=== PATIENT | female | born 1990 | race African-American/Black ===

== ENCOUNTER → 2020-04-07 | Outpatient (CLI) | payer MEDICAID ==
--- NOTE | 2020-04-07 17:05 | RADIOLOGY REPORT (SQ) ---
EXAM DESCRIPTION: U/S OB 14+ TRNABD 1GES W/O DOP IMAGES COMPLETED DATE/TIME: 04/07/2020 4:05 pm REASON FOR STUDY: (Z34.82)ENCOUNTER FOR SUPRVSN OF NORMAL , SECOND TRIMESTER Z34.[address] FOR SUPRVSN OF NORMAL , SECOND TRI COMPARISON: None. TECHNIQUE: Static and Dynamic grayscale imaging performed of gravid uterus using transabdominal appr oach. Additional selected color Doppler and spectral images recorded. All stored on PACS. LIMITATIONS: None. FINDINGS: FETUSES SEEN:1 EGA: 17 week 4 day. Calculated using BPD,FL,HC,AC documented on images. Clinical dates 18 weeks 6 da y. KEITH: 09/11/2020. EFW: 212 grams PERCENTILE: Not applicable. Fetus less than or equal to 20 weeks gestation. LVP: 3.6 x 6.3 cm. PLACENTA: Anterior. GRADE: 0 PRESENTATION: Breech. ANATOMY: HEART RATE: 145 beats per minute. FOUR CHAMBER HEART: Visualized. THREE VESSEL CORD: Yes. CORD INSERTION: Visualized. KIDNEYS AND BLADDER: Visualized. Appear normal. STOMACH: Visualized. Appears normal. SPINE: Suboptimal visualization due to positioning. BRAIN AND LATERAL VENTRICLES: Visualized. Appear normal. OTHER: No other significant finding. MATERNAL ADNEXA: Normal appearance. CERVICAL LENGTH: 2.1 cm. Closed. OTHER: No other significant finding. IMPRESSION: LIVING INTRAUTERINE . ESTIMATED GESTATIONAL AGE 17 WEEK 4 DAY. NO VISUALIZED ANOMALIES. Trimester of : Second trimester - 13 weeks 1 day to 27 weeks 6 days. TECHNICAL DOCUMENTATION: JOB ID: [id number] 2010 [employer]- All Rights Reserved Reading location - IP/workstation name: [email or web address]
== END ==
LOC: RAD 15:08
PROVIDERS: ATTEND Midwife
DX: Z34.82 Encounter for supervision of other normal pregnancy, second trimester (principal)
CPT/HCPCS: 76805

== ENCOUNTER 2020-05-27 14:17 | Observation (INO) | payer MEDICAID ==
[2020-05-27] MEDS ORDERED: HYDRALAZINE HCL INJ/PF 20 MG/1 ML SDV IV ONE ×2 (14:48→15:24)
[2020-05-27] MEDS ORDERED: HYDRALAZINE HCL INJ/PF 20 MG/1 ML SDV ONE (14:49)
[2020-05-27 15:04] LABS: HEMATOCRIT 33.9 % (36.0-47.0); HEMOGLOBIN 11.1 g/dL (12.0-15.5); MEAN CORPUSCULAR HEMOGLOBIN 29.9 pg (27.0-33.4); MEAN CORPUSCULAR HGB CONC 32.8 g/dL (32.0-36.0); MEAN CORPUSCULAR VOLUME 91 fl (80-97); PLATELET COUNT 225 10^3/uL (150-450); RED BLOOD COUNT 3.71 10^6/uL (3.72-5.28); RED CELL DISTRIBUTION WIDTH 15.1 % (11.5-14.0); WHITE BLOOD COUNT 7.4 10^3/uL (4.0-10.5)
[2020-05-27 15:33] LABS: ALBUMIN 3.1 g/dL (3.5-5.0); ALKALINE PHOSPHATASE 125 U/L (38-126); ASPARTATE AMINO TRANSFERASE 24 U/L (14-36); BILIRUBIN,TOTAL 0.2 mg/dL (0.2-1.3); BLOOD UREA NITROGEN 9 mg/dL (7-20); CALCIUM 9.3 mg/dL (8.4-10.2); CARBON DIOXIDE 25 mmol/L (22-30); CHLORIDE 105 mmol/L (98-107); GLUCOSE 70 mg/dL (75-110); TOTAL PROTEIN 6.1 g/dL (6.3-8.2); URIC ACID 4.6 mg/dL (2.5-6.2)
[2020-05-27 15:34] LABS: ANION GAP 4 (5-19)
[2020-05-27 15:39] LABS: APPEARANCE,URINE CLEAR; BILIRUBIN,URINE NEGATIVE (NEGATIVE); COLOR,URINE STRAW; GLUCOSE, URINE NEGATIVE (NEGATIVE); KETONES,URINE NEGATIVE (NEGATIVE); LEUKOCYTE ESTERASE,URINE NEGATIVE (NEGATIVE); NITRITE,URINE NEGATIVE (NEGATIVE); PROTEIN,URINE NEGATIVE (NEGATIVE); URINE SPECIFIC GRAVITY 1.005; UROBILINOGEN,URINE NEGATIVE mg/dL (<2.0)
[2020-05-27] MEDS ORDERED: NIFEDIPINE 30 MG TAB.ER.24 PO ONE (15:43)
[2020-05-27] MEDS: NIFEDIPINE 30 MG TAB.ER.24 PO SCH (15:46)
[2020-05-27 15:57] LABS: URINE AMPHETAMINES SCREEN NEGATIVE; URINE BARBITURATES SCREEN NEGATIVE; URINE BENZODIAZEPINES SCREEN NEGATIVE; URINE COCAINE SCREEN NEGATIVE; URINE MARIJUANA (THC) SCREEN NEGATIVE; URINE METHADONE SCREEN NEGATIVE; URINE PHENCYCLIDINE SCREEN NEGATIVE
[2020-05-27 16:02] LABS: UR PRO/CREAT RATIO RESULT 0.5 mg/mg (0.0-0.2); URINE CREATININE 51.8 mg/dL (16-327); URINE PROTEIN 24.9 mg/dL (<12)
[2020-05-27] MEDS ORDERED: NIFEDIPINE 10 MG CAPSULE PO ONE (16:23)
[2020-05-27] MEDS ORDERED: LABETALOL HCL 200 MG TABLET ONE (16:23)
[2020-05-27] MEDS ORDERED: NIFEDIPINE 10 MG CAPSULE ONE (16:23)
[2020-05-27] MEDS: LABETALOL HCL 200 MG TABLET PO SCH (16:27)
[2020-05-27] MEDS ORDERED: BETAMET ACET/BETAMET NA INJ 6 MG/1 ML IM ONE (16:44)
[2020-05-27] MEDS ORDERED: BETAMET ACET/BETAMET NA INJ 6 MG/1 ML ONE (16:44)
[2020-05-28] MEDS ORDERED: LABETALOL HCL 200 MG TABLET ONE (04:52)
[2020-05-28] MEDS: LABETALOL HCL 200 MG TABLET PO SCH ×2 (05:01→17:00)
[2020-05-28] MEDS ORDERED: NIFEDIPINE 30 MG TAB.ER.24 PO ONE (10:33)
[2020-05-28] MEDS: NIFEDIPINE 30 MG TAB.ER.24 PO SCH (10:36)
[2020-05-28 16:12] LABS: URINE PROTEIN 18.1 mg/dL (<12)
[2020-05-28 16:13] LABS: 24 HOUR URINE PROTEIN RESULT 606 mg/day (42-225)
--- NOTE | 2020-05-28 17:23 | PDOC DISCHARGE SUMMARY ---
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 She indicates she does not have CHTN and that at her appt yesterday was when her blood pressures presented as elevated. She was admitted also for BP control which has been optimized with Procardia XL 30 mg and Labetolol 100 mg BID. She does have a history of pre- eclampsia in her previous that occured at term. She has been carefully counseled on signs and symptoms of worsening pre-eclampsia. She will keep a bp log at home twice a day. And she will have close follow up as outpatient. She discussed her multiple anomalies associated with this and the plan to deliver at [place]. I advised her that we will try to manage her outpatient but that there is a high likelihood that she could be readmitted for filler leaf cutter long management if condition starts to worsen. She voices understanding of her condition and the associated risks. - Additional Information Resuscitation Status: Full Code Discharge Diet: Cardiac Discharge Activity: Balance Activity w/Rest, No Lifting Over 10 Pounds, No Lifting/Push/Pulling Referrals: AARON ROJAS CNM [Primary Care Provider] - Prescriptions: Labetalol HCl [Normodyne 200 mg Tablet] 100 mg PO Q12A #60 tablet Nifedipine [Procardia XL 30 mg Tablet] 30 mg PO DAILY #30 tab.er.24 Home Medications: Prenat 115/Iron Fum/Folic/Dss [ 19 Tablet] 1 tab PO DAILY 05/27/20 Labetalol HCl [Normodyne 200 mg Tablet] 100 mg PO Q12A #60 tablet 05/28/20 Nifedipine [Procardia XL 30 mg Tablet] 30 mg PO DAILY #30 tab.er.24 05/28/20 History of Present Illiness History of Present Illness: MARK KEENAN is a 29 year old female Physical Exam - Physical Exam Vital Signs: Intake & Output 05/27/20 05/28/20 05/29/20 06:59 06:59 06:59 Weight 73.1 kg Results Laboratory Results: WBC 7.4 10^3/uL (4.0-10.5) 05/27/20 14:40 RBC 3.71 10^6/uL (3.72-5.28) L 05/27/20 14:40 Hgb 11.1 g/dL (12.0-15.5) L 05/27/20 14:40 Hct 33.9 % (36.0-47.0) L 05/27/20 14:40 MCV 91 fl (80-97) 05/27/20 14:40 MCH 29.9 pg (27.0-33.4) 05/27/20 14:40 MCHC 32.8 g/dL (32.0-36.0) 05/27/20 14:40 RDW 15.1 % (11.5-14.0) H 05/27/20 14:40 Plt Count 225 10^3/uL (150-450) 05/27/20 14:40 Sodium 134.1 mmol/L (137-145) L 05/27/20 14:40 Potassium 4.0 mmol/L (3.6-5.0) 05/27/20 14:40 Chloride 105 mmol/L (98-107) 05/27/20 14:40 Carbon Dioxide 25 mmol/L (22-30) 05/27/20 14:40 Anion Gap 4 (5-19) L 05/27/20 14:40 BUN 9 mg/dL (7-20) 05/27/20 14:40 Creatinine 0.60 mg/dL (0.52-1.25) 05/27/20 14:40 Est GFR ( Amer) > 60 (>60) 05/27/20 14:40 Est GFR (MDRD) Non-Af > 60 (>60) 05/27/20 14:40 Glucose 70 mg/dL (75-110) L 05/27/20 14:40 Uric Acid 4.6 mg/dL (2.5-6.2) 05/27/20 14:40 Calcium 9.3 mg/dL (8.4-10.2) 05/27/20 14:40 Total Bilirubin 0.2 mg/dL (0.2-1.3) 05/27/20 14:40 Direct Bilirubin 0.0 mg/dL (0.0-0.4) 05/27/20 14:40 Neonat Total Bilirubin Not Reportable 05/27/20 14:40 Neonat Direct Bilirubin Not Reportable 05/27/20 14:40 Neonat Indirect Bili Not Reportable 05/27/20 14:40 AST 24 U/L (14-36) 05/27/20 14:40 ALT 18 U/L (<35) 05/27/20 14:40 Alkaline Phosphatase 125 U/L (38-126) 05/27/20 14:40 Lactate Dehydrogenase 213 U/L (120-246) 05/27/20 14:40 Total Protein 6.1 g/dL (6.3-8.2) L 05/27/20 14:40 Albumin 3.1 g/dL (3.5-5.0) L 05/27/20 14:40 Urine Color STRAW 05/27/20 15:07 Urine Appearance CLEAR 05/27/20 15:07 Urine pH 7.0 (5.0-9.0) 05/27/20 15:07 Ur Specific [place] 1.005 05/27/20 15:07 Urine Protein NEGATIVE mg/dL (NEGATIVE) 05/27/20 15:07 Urine Glucose (UA) NEGATIVE mg/dL (NEGATIVE) 05/27/20 15:07 Urine Ketones NEGATIVE mg/dL (NEGATIVE) 05/27/20 15:07 Urine Blood NEGATIVE (NEGATIVE) 05/27/20 15:07 Urine Nitrite NEGATIVE (NEGATIVE) 05/27/20 15:07 Urine Bilirubin NEGATIVE (NEGATIVE) 05/27/20 15:07 Urine Urobilinogen NEGATIVE mg/dL (<2.0) 05/27/20 15:07 Ur Leukocyte Esterase NEGATIVE (NEGATIVE) 05/27/20 15:07 Urine WBC (Auto) 1 /HPF 05/27/20 15:07 Urine RBC (Auto) 0 /HPF 05/27/20 15:07 Squamous Epi Cells Auto 3 /HPF 05/27/20 15:07 Ur 24 Hour Volume 3350 mL 05/27/20 15:07 Urine Creatinine 51.8 mg/dL (16-327) 05/27/20 15:07 Ur Total Protein 24 Hr 606 mg/day (42-225) H 05/27/20 15:07 Protein/Creatinin Ratio 0.5 mg/mg (0.0-0.2) H 05/27/20 15:07 Urine Total Protein 18.1 mg/dL (<12) H 05/27/20 15:07 Urine Total Protein 24.9 mg/dL (<12) H 05/27/20 15:07 Urine Ascorbic Acid NEGATIVE (NEGATIVE) 05/27/20 15:07 Urine Opiates Screen NEGATIVE 05/27/20 15:07 Urine Methadone Screen NEGATIVE 05/27/20 15:07 Ur Barbiturates Screen NEGATIVE 05/27/20 15:07 Ur Phencyclidine Scrn NEGATIVE 05/27/20 15:07 Ur Amphetamines Screen NEGATIVE 05/27/20 15:07 U Benzodiazepines Scrn NEGATIVE 05/27/20 15:07 Urine Cocaine Screen NEGATIVE 05/27/20 15:07 U Marijuana (THC) Screen NEGATIVE 05/27/20 15:07 Stroke Is this a Stroke Patient?: No Acute Heart Failure Is this a Heart Failure Patient?: No
[2020-05-28] MEDS ORDERED: BETAMET ACET/BETAMET NA INJ 6 MG/1 ML ONE (18:52)
[2020-05-28] MEDS ORDERED: BETAMET ACET/BETAMET NA INJ 6 MG/1 ML IM ONE (18:53)
== END 2020-05-28 18:58 | disposition home or self-care (01) ==
LOC: LC 14:17 → LR 17:43
PROVIDERS: ADMIT Obstetrics & Gynecology Gynecology; ATTEND Obstetrics & Gynecology Gynecology
DX: O36.5921 Maternal care for other known or suspected poor fetal growth, second trimester, fetus 1 (principal); O35.8XX1 Maternal care for other (suspected) fetal abnormality and damage, fetus 1; O14.92 Unspecified pre-eclampsia, second trimester; O98.512 Other viral diseases complicating pregnancy, second trimester; O98.212 Gonorrhea complicating pregnancy, second trimester; O98.812 Other maternal infectious and parasitic diseases complicating pregnancy, second trimester; Z3A.26 26 weeks gestation of pregnancy
CPT/HCPCS: 36415; 83615; 84156; 84550; 82570; 85027; 80053; 81001; 80307; G0378 ×2; J0360; J3490 ×5; J0702 ×2

== ENCOUNTER 2020-05-30 12:12 | Outpatient (CLI) | payer MEDICAID ==
[2020-05-30] MEDS ORDERED: HYDRALAZINE HCL INJ/PF 20 MG/1 ML SDV IV ONE (12:45)
[2020-05-30] MEDS ORDERED: RINGERS SOLUTION,LACTATED 1,000 ML IV PRN (12:45)
[2020-05-30] MEDS ORDERED: HYDRALAZINE HCL INJ/PF 20 MG/1 ML SDV ONE (12:47)
[2020-05-30 14:18] LABS: HEMATOCRIT 30.3 % (36.0-47.0); HEMOGLOBIN 10.1 g/dL (12.0-15.5); MEAN CORPUSCULAR HEMOGLOBIN 30.5 pg (27.0-33.4); MEAN CORPUSCULAR HGB CONC 33.3 g/dL (32.0-36.0); MEAN CORPUSCULAR VOLUME 92 fl (80-97); PLATELET COUNT 262 10^3/uL (150-450); RED BLOOD COUNT 3.31 10^6/uL (3.72-5.28); RED CELL DISTRIBUTION WIDTH 15.2 % (11.5-14.0); WHITE BLOOD COUNT 12.3 10^3/uL (4.0-10.5)
[2020-05-30 14:29] LABS: ALKALINE PHOSPHATASE 120 U/L (38-126); ASPARTATE AMINO TRANSFERASE 24 U/L (14-36); BILIRUBIN,TOTAL 0.1 mg/dL (0.2-1.3); BLOOD UREA NITROGEN 12 mg/dL (7-20); CALCIUM 9.1 mg/dL (8.4-10.2); CHLORIDE 105 mmol/L (98-107); GLUCOSE 99 mg/dL (75-110); POTASSIUM 3.7 mmol/L (3.6-5.0); TOTAL PROTEIN 5.7 g/dL (6.3-8.2); URIC ACID 4.3 mg/dL (2.5-6.2)
[2020-05-30 14:34] LABS: CARBON DIOXIDE 27 mmol/L (22-30)
[2020-05-30 14:39] LABS: ANION GAP 3 (5-19)
== END 2020-05-30 15:23 | disposition home or self-care (01) ==
LOC: LC 12:12
PROVIDERS: ATTEND Obstetrics & Gynecology
DX: O14.93 Unspecified pre-eclampsia, third trimester (principal); Z3A.28 28 weeks gestation of pregnancy
CPT/HCPCS: 36415; 83615; 84550; 85027; 80053; 59899; J0360; 94760

== ENCOUNTER 2020-06-01 02:59 | Outpatient (CLI) | payer MEDICAID ==
[2020-06-01 03:34] LABS: APPEARANCE,URINE CLEAR; BILIRUBIN,URINE NEGATIVE (NEGATIVE); COLOR,URINE STRAW; GLUCOSE, URINE NEGATIVE (NEGATIVE); KETONES,URINE NEGATIVE (NEGATIVE); LEUKOCYTE ESTERASE,URINE SMALL (NEGATIVE); NITRITE,URINE NEGATIVE (NEGATIVE); PROTEIN,URINE >=500 mg/dL (NEGATIVE); UROBILINOGEN,URINE NEGATIVE mg/dL (<2.0)
[2020-06-01 03:57] LABS: URINE AMPHETAMINES SCREEN NEGATIVE; URINE BARBITURATES SCREEN NEGATIVE; URINE BENZODIAZEPINES SCREEN NEGATIVE; URINE COCAINE SCREEN NEGATIVE; URINE MARIJUANA (THC) SCREEN NEGATIVE; URINE METHADONE SCREEN NEGATIVE; URINE PHENCYCLIDINE SCREEN NEGATIVE
== END 2020-06-01 04:13 | disposition home or self-care (01) ==
LOC: LC 02:59
PROVIDERS: ATTEND Nurse Practitioner Family
DX: O14.92 Unspecified pre-eclampsia, second trimester (principal); O98.512 Other viral diseases complicating pregnancy, second trimester; O99.332 Smoking (tobacco) complicating pregnancy, second trimester; F17.210 Nicotine dependence, cigarettes, uncomplicated; Z3A.26 26 weeks gestation of pregnancy
CPT/HCPCS: 80307; 81001

== ENCOUNTER 2020-06-01 22:31 | Outpatient (CLI) | payer MEDICAID ==
[2020-06-01 22:59] LABS: APPEARANCE,URINE SLIGHTLY-CLOUDY; BILIRUBIN,URINE NEGATIVE (NEGATIVE); COLOR,URINE YELLOW; GLUCOSE, URINE NEGATIVE (NEGATIVE); KETONES,URINE NEGATIVE (NEGATIVE); LEUKOCYTE ESTERASE,URINE TRACE (NEGATIVE); NITRITE,URINE NEGATIVE (NEGATIVE); PROTEIN,URINE >=500 mg/dL (NEGATIVE); URINE SPECIFIC GRAVITY 1.018; UROBILINOGEN,URINE NEGATIVE mg/dL (<2.0)
[2020-06-01 23:11] LABS: ABSOLUTE BASOPHILS # (AUTO) 0.1 10^3/uL (0.0-0.2); ABSOLUTE EOSINOPHILS # (AUTO) 0.5 10^3/uL (0.0-0.6); ABSOLUTE LYMPHOCYTES (AUTO) 3.2 10^3/uL (0.5-4.7); ABSOLUTE MONOCYTES (AUTO) 1.1 10^3/uL (0.1-1.4); EOSINOPHILS % (AUTO) 4.4 % (0-6); HEMATOCRIT 32.3 % (36.0-47.0); HEMOGLOBIN 10.5 g/dL (12.0-15.5); LYMPHOCYTES % (AUTO) 26.5 % (13-45); MEAN CORPUSCULAR HGB CONC 32.6 g/dL (32.0-36.0); MEAN CORPUSCULAR VOLUME 92 fl (80-97); MONOCYTES % (AUTO) 9.2 % (3-13); PLATELET COUNT 250 10^3/uL (150-450); RED BLOOD COUNT 3.52 10^6/uL (3.72-5.28); RED CELL DISTRIBUTION WIDTH 15.3 % (11.5-14.0); SEGMENTED NEUTROPHILS % (AUTO) 58.9 % (42-78); TOTAL CELLS COUNTED % (AUTO) 100 %; WHITE BLOOD COUNT 11.9 10^3/uL (4.0-10.5)
[2020-06-01 23:11] LABS: URINE AMPHETAMINES SCREEN NEGATIVE; URINE BARBITURATES SCREEN NEGATIVE; URINE BENZODIAZEPINES SCREEN NEGATIVE; URINE COCAINE SCREEN NEGATIVE; URINE MARIJUANA (THC) SCREEN NEGATIVE; URINE METHADONE SCREEN NEGATIVE; URINE PHENCYCLIDINE SCREEN NEGATIVE
[2020-06-01] MEDS ORDERED: RINGERS SOLUTION,LACTATED 1,000 ML IV PRN (23:17)
[2020-06-01 23:19] LABS: ALKALINE PHOSPHATASE 125 U/L (38-126); ASPARTATE AMINO TRANSFERASE 26 U/L (14-36); BILIRUBIN,TOTAL 0.2 mg/dL (0.2-1.3); BLOOD UREA NITROGEN 16 mg/dL (7-20); CALCIUM 8.8 mg/dL (8.4-10.2); CARBON DIOXIDE 26 mmol/L (22-30); GLUCOSE 103 mg/dL (75-110); POTASSIUM 4.2 mmol/L (3.6-5.0); TOTAL PROTEIN 5.9 g/dL (6.3-8.2); URIC ACID 5.2 mg/dL (2.5-6.2)
[2020-06-01] MEDS ORDERED: LABETALOL HCL INJ 20 MG/4 ML DISP.SYRIN IV ONE (23:22)
[2020-06-01] MEDS ORDERED: LABETALOL HCL 200 MG TABLET ONE (23:22)
[2020-06-01 23:24] LABS: CHLORIDE 106 mmol/L (98-107)
[2020-06-01 23:25] LABS: ANION GAP 3 (5-19)
[2020-06-01] MEDS ORDERED: LABETALOL HCL 200 MG TABLET PO SCH (23:30)
[2020-06-02] MEDS ORDERED: LABETALOL HCL INJ 20 MG/4 ML DISP.SYRIN IV ONE ×7 (00:18→01:30)
[2020-06-02] MEDS ORDERED: NIFEDIPINE 30 MG TAB.ER.24 PO ONE ×4 (00:18→03:00)
[2020-06-02] MEDS ORDERED: HYDRALAZINE HCL INJ/PF 20 MG/1 ML SDV ONE ×2 (01:52)
[2020-06-02] MEDS ORDERED: MAGNESIUM SULFATE 20 GM/500 ML RTUINJ IV PRN (02:17)
[2020-06-02] MEDS ORDERED: MAGNESIUM SULFATE 4 GM/100 ML RTUPB IV ONE ×2 (02:21→03:00)
[2020-06-02] MEDS ORDERED: MAGNESIUM SULFATE 20 GM/500 ML RTUINJ IV ONE (02:21)
[2020-06-02] MEDS ORDERED: HYDRALAZINE HCL INJ/PF 20 MG/1 ML SDV IV ONE (03:00)
--- NOTE | 2020-06-02 03:26 | Admission Physical ---
Datetime Report Generated by N: 06/02/2020 03:26 CURRENT ADMISSION Chief Complaint: Sent from OB Office for Evaluation and Treatment - Please Specify Chief Complaint Other: Dr. Arcelia Mcrae, [facility] saw patient earlier today and sent patient for evaluation. She was to come directly from office but is just now arriving. at 26.5 wks EGA with complicated by preeclampsia diagnosed by elevated b/p and 24 hr urine of 630. Severe preeclampsia now by blood pressures > 160 systolic. Patient was placed on antihypertensives 05/27/20 including Labetolol 100mg BID and Nifedipine 30mg BID. Patient had Headache at Dr. Delong office earlier and a 10 lb weight gain was noted since last week. Presently patient denies headache, chest pain, SOB, RUQ pain, nausea vomiting or vision changes. On US today with Dr. Mcrae, patient had EFW of 425 gms, <1% and AEDF with MCA dopplers that were elevated. 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 She did get betamethasone x2 last week on 11/25/20 Labs on admission today: Uric acid 5.2, LDH 282, /AST _ ALT 26 _ 20 , creatinine 0.73 and platelets [address] Carrera from earlier today is for transport to [place] for antepartum management and delivery if and when indicated at their facility. She had already discussed case with Dr. Helene Nguyễn who accepted her transfer. ALLERGIES Medication Allergies: No Medication Allergies: No Known Allergies (06/01/2020) Latex: No Latex Allergies OBSTETRICAL HISTORY EDC: 09/02/2020 00:00 : 2 Para: 1 Term: 1 : 0 SAB: 0 IAB: 0 Ectopic: 0 Livin Cesareans: 0 VBACs: 0 Multiple Births: 0 Gestational Diabetes: No Rh Sensitization: No Incompetent Cervix: No MERLIN: No Infertility: No ART Treatment: No Uterine Anomaly: No IUGR: Yes Hx Previous C/S: No Macrosomia: No Hx Loss/Stillborn: No PIH: Yes Hx : No Placenta Previa/Abruption: No Depression/PP Depression: No PTL/PROM: No Post Hemorrhage: No Current Procedures: Ultrasound Obstetrical History Comments: G1- 01/21/12 BB pre-e IOL at 38 weeks G2-current- pre-e, 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 [id number] Cigarette Frequency: < 5 per day Advised to Stop: Yes MEDICAL HISTORY Diabetes: No Blood Transfusion: No Pulmonary Disease (Asthma, TB): No Breast Disease: No Hypertension: Yes Hr Associate Surgery: No Heart Disease: No Hosp/Surgery: No Autoimmune Disorder: No Anesthetic Complications: No Kidney Disease: No Abnormal Pap Smear: No Neuro/Epilepsy: No Psychiatric Disorders: No Other Medical Diseases: No Hepatitis/Liver Disease: No Significant Family History: No Varicosities/Phlebitis: No Trauma/Violence : No Thyroid Dysfunction: No INFECTIOUS HISTORY Gonorrhea: Yes Genital Herpes: Yes Chlamydia: Yes Tuberculosis: No Syphilis: No Hepatitis: No HIV/AIDS Exposure: No Rash or Viral Illness: No HPV: No Infectious History Comments: Last herpes outbreak last month, GC/clamydia in the last few weeks PHYSICAL EXAM General: Normal HEENT: Normal Neurologic: Normal Thyroid: Normal Heart: Normal Lungs: Normal Breast: Normal Back: Normal Abdomen: Normal Genitourinary Exam: Normal Extremities: Normal DTRs: Normal Pelvic Type: Adequate Physical Exam Comments: Lungs clear bilaterally, heart sounds normal, no pain on palpation of abdomen including RUQ, no clonus, patellar reflexes 1/4 bilaterally Vital Signs: Reviewed; Within Normal Limits MEMBRANES Membranes: Bulging FETUS A EGA: 26.5 Monitoring: External US FHR- Baseline: 145 Variability: Minimal - Undetectable to <=5bpm Accelerations: Absent Decelerations: None FHR Category: Category II Presentation: Breech Admit Comment: Dr. Arcelia Mcrae [facility] saw patient earlier today and sent patient for evaluation. She was to come directly from office but is just now arriving. 29 yo at 26.5 wks EGA with complicated by preeclampsia diagnosed by elevated b/p and 24 hr urine of 630. Severe preeclampsia now by blood pressures > 160 systolic. Patient was placed on antihypertensives 05/27/20 including Labetolol 100mg BID and Nifedipine 30mg BID. Patient had Headache at Dr. Delong office earlier and a 10 lb weight gain was noted since last week. Presently patient denies headache, chest pain, SOB, RUQ pain, nausea vomiting or vision changes. On US today with Dr. Mcrae, patient had EFW of 425 gms, <1% and AEDF with MCA dopplers that were elevated. 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 She did get betamethasone x2 last week on 05/27/20 Labs on admission today: Uric acid 5.2, LDH 282, /AST _ ALT 26 _ 20 , creatinine 0.73 and platelets [address] Carrera from earlier today is for transport to [place] for antepartum management and delivery if and when indicated at their facility. She had already discussed case with Dr. Helene Nguyễn who accepted her transfer. -Admit to LDR -VS with severe range b/p's: Follow hypertensive protocol starting with Labetolol 20mg IV now. Resume PO labetalol as well at 200mg BID and resume nifedipine 30mg PO daily Begin Mag sulfate 4 gm bolus followed by 2 gms /hr -s/p BMZ x2 on 05/27/20 -CEFM and toco -Breech by US. EFW today was 425 gms <1% . AEDF with MCA dopplers 1.75-1.95 MoM -Labs as above. Repeat Q 12 hours -Plan for transport to [place] for further care per Dr. Mcrae's recommendations. Transport called. PLANS FOR LABOR AND DELIVERY Labor and Delivery: None Pain Management: Epidural Feeding Preference: Both Benefit of Breast Feed Discussed: Yes Circumcision: N/A INFORMED CONSENT Informed Consent Obtained: Risks, Benefits and Alternatives Discussed Signature: with User ID: Hillary : with User ID: Hillary
--- NOTE | 2020-06-02 04:21 | PDOC DISCHARGE SUMMARY ---
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 Care accepted by Dr. Helene Nguyễn and Dr. Barragan at [facility]. Patient has preeclampsia, severe by severe range blood pressures and a 24 hour urine postive at 630. She was treated on arrive to [facility] for severe blood pressures with Labetolol 20mg IV followed by labetolol 40mg IV and then labetolol 80 mg IV. She also recieved labetolol 200 mg PO as well as Nifedipine 30mg PO x2 doses. She did recieve hydralizine 10mg IV x1 dose as well . Magnesium sulfate 4gms was given IV followed by 2 gms/hr continuously and b/p was in the elevated but not severe range. Pulse and temperature normal. She had recieved betamethasone x2 on 05/27/20 to 05/28/20 so steroids were not given today. Continuous monitoring showed FHR of 145 bpm with minimal varibility, no acelerations and occassional variable deceleration . No contractions. Labs stable as per H&P. Uric acid 5.2/LDH 282 / AST and ALT 20& 26/ creatinine 0.73 and platelets 250 Rapid Covid test obtained but results pending She will be sent by air in stable condition. Report given to recieving staff. - Additional Information Resuscitation Status: Full Code Discharge Diet: As Tolerated Discharge Activity: Bedrest Home Medications: Prenat 115/Iron Fum/Folic/Dss [ 19 Tablet] 1 tab PO DAILY 05/27/20 Labetalol HCl [Normodyne 200 mg Tablet] 100 mg PO Q12A #60 tablet 05/28/20 Nifedipine [Procardia XL 30 mg Tablet] 30 mg PO DAILY #30 tab.er.24 05/28/20 History of Present Illiness History of Present Illness: MARK KEENAN is a 29 year old female Physical Exam - Physical Exam Vital Signs: Intake & Output 05/31/20 06/01/20 06/02/20 06:59 06:59 06:59 Weight 77.6 kg Results Laboratory Results: WBC 11.9 10^3/uL (4.0-10.5) H 06/01/20 22:56 RBC 3.52 10^6/uL (3.72-5.28) L 06/01/20 22:56 Hgb 10.5 g/dL (12.0-15.5) L 06/01/20 22:56 Hct 32.3 % (36.0-47.0) L 06/01/20 22:56 MCV 92 fl (80-97) 06/01/20 22:56 MCH 30.0 pg (27.0-33.4) 06/01/20 22:56 MCHC 32.6 g/dL (32.0-36.0) 06/01/20 22:56 RDW 15.3 % (11.5-14.0) H 06/01/20 22:56 Plt Count 250 10^3/uL (150-450) 06/01/20 22:56 Lymph % (Auto) 26.5 % (13-45) 06/01/20 22:56 [place] % (Auto) 9.2 % (3-13) 06/01/20 22:56 Eos % (Auto) 4.4 % (0-6) 06/01/20 22:56 Baso % (Auto) 1.0 % (0-2) 06/01/20 22:56 Absolute Neuts (auto) 7.0 10^3/uL (1.7-8.2) 06/01/20 22:56 Absolute Lymphs (auto) 3.2 10^3/uL (0.5-4.7) 06/01/20 22:56 Absolute Monos (auto) 1.1 10^3/uL (0.1-1.4) 06/01/20 22:56 Absolute Eos (auto) 0.5 10^3/uL (0.0-0.6) 06/01/20 22:56 Absolute Basos (auto) 0.1 10^3/uL (0.0-0.2) 06/01/20 22:56 Seg Neutrophils % 58.9 % (42-78) 06/01/20 22:56 Sodium 135.0 mmol/L (137-145) L 06/01/20 22:56 Potassium 4.2 mmol/L (3.6-5.0) 06/01/20 22:56 Chloride 106 mmol/L (98-107) 06/01/20 22:56 Carbon Dioxide 26 mmol/L (22-30) 06/01/20 22:56 Anion Gap 3 (5-19) L 06/01/20 22:56 BUN 16 mg/dL (7-20) 06/01/20 22:56 Creatinine 0.73 mg/dL (0.52-1.25) 06/01/20 22:56 Est GFR ( Amer) > 60 (>60) 06/01/20 22:56 Est GFR (MDRD) Non-Af > 60 (>60) 06/01/20 22:56 Glucose 103 mg/dL (75-110) 06/01/20 22:56 Uric Acid 5.2 mg/dL (2.5-6.2) 06/01/20 22:56 Calcium 8.8 mg/dL (8.4-10.2) 06/01/20 22:56 Total Bilirubin 0.2 mg/dL (0.2-1.3) 06/01/20 22:56 Direct Bilirubin 0.0 mg/dL (0.0-0.4) 06/01/20 22:56 Neonat Total Bilirubin Not Reportable 06/01/20 22:56 Neonat Direct Bilirubin Not Reportable 06/01/20 22:56 Neonat Indirect Bili Not Reportable 06/01/20 22:56 AST 26 U/L (14-36) 06/01/20 22:56 ALT 20 U/L (<35) 06/01/20 22:56 Alkaline Phosphatase 125 U/L (38-126) 06/01/20 22:56 Lactate Dehydrogenase 282 U/L (120-246) H 06/01/20 22:56 Total Protein 5.9 g/dL (6.3-8.2) L 06/01/20 22:56 Albumin 3.0 g/dL (3.5-5.0) L 06/01/20 22:56 Urine Color YELLOW 06/01/20 22:45 Urine Appearance SLIGHTLY-CLOUDY 06/01/20 22:45 Urine pH 6.0 (5.0-9.0) 06/01/20 22:45 Ur Specific [place] 1.018 06/01/20 22:45 Urine Protein >=500 mg/dL (NEGATIVE) H 06/01/20 22:45 Urine Glucose (UA) NEGATIVE mg/dL (NEGATIVE) 06/01/20 22:45 Urine Ketones NEGATIVE mg/dL (NEGATIVE) 06/01/20 22:45 Urine Blood NEGATIVE (NEGATIVE) 06/01/20 22:45 Urine Nitrite NEGATIVE (NEGATIVE) 06/01/20 22:45 Urine Bilirubin NEGATIVE (NEGATIVE) 06/01/20 22:45 Urine Urobilinogen NEGATIVE mg/dL (<2.0) 06/01/20 22:45 Ur Leukocyte Esterase TRACE (NEGATIVE) H 06/01/20 22:45 Urine WBC (Auto) 2 /HPF 06/01/20 22:45 Urine RBC (Auto) 3 /HPF 06/01/20 22:45 Urine Bacteria (Auto) TRACE /HPF 06/01/20 22:45 Squamous Epi Cells Auto 3 /HPF 06/01/20 22:45 Urine Mucus (Auto) FEW /LPF 06/01/20 22:45 Urine Ascorbic Acid 20 (NEGATIVE) H 06/01/20 22:45 Urine Opiates Screen NEGATIVE 06/01/20 22:45 Urine Methadone Screen NEGATIVE 06/01/20 22:45 Ur Barbiturates Screen NEGATIVE 06/01/20 22:45 Ur Phencyclidine Scrn NEGATIVE 06/01/20 22:45 Ur Amphetamines Screen NEGATIVE 06/01/20 22:45 U Benzodiazepines Scrn NEGATIVE 06/01/20 22:45 Urine Cocaine Screen NEGATIVE 06/01/20 22:45 U Marijuana (THC) Screen NEGATIVE 06/01/20 22:45 Stroke Is this a Stroke Patient?: No Acute Heart Failure Is this a Heart Failure Patient?: No
== END 2020-06-02 04:09 | disposition short-term general hospital (02) ==
LOC: LC 22:31
PROVIDERS: ATTEND Obstetrics & Gynecology
DX: O14.92 Unspecified pre-eclampsia, second trimester (principal); Z20.828 Contact with and (suspected) exposure to other viral communicable diseases; O98.312 Other infections with a predominantly sexual mode of transmission complicating pregnancy, second trimester; O99.332 Smoking (tobacco) complicating pregnancy, second trimester; F17.210 Nicotine dependence, cigarettes, uncomplicated; Z71.6 Tobacco abuse counseling; Z3A.26 26 weeks gestation of pregnancy
CPT/HCPCS: 59899; 94760; 36415; 83615; 84550; 85025; 0241U ×4; 80053; 81001; 80307; J3475 ×2; J0360; J3490 ×4; C9803